=== PATIENT | female | born 1940 | race Caucasian/White ===

== ENCOUNTER 2024-02-09 23:41 | Emergency (ER) | payer MEDICARE, SELFPAY ==
[2024-02-09 23:41] VITALS: BP 141/80; PULSE 83; RESP 20; TEMP 37.9; O2SAT 95; BMI 30.5
--- NOTE | 2024-02-09 23:48 | XR_ITS ---
PROCEDURE INFORMATION: Exam: XR Chest Exam date and time: 02/09/2024 11:53 PM Age: 83 years old Clinical indication: Fever; Additional info: Fever in copd patient TECHNIQUE: Imaging protocol: Radiologic exam of the chest. Views: 1 view. Total images: 1 COMPARISON: No relevant prior studies available. FINDINGS: Lungs: Coarsened pulmonary interstitium at both lung bases. No airspace consolidation or vascular congestion. No interstitial edema. No focal airspace consolidation. Poor lung expansion. Pleural spaces: Unremarkable. No pleural effusion. No pneumothorax. Heart/Mediastinum: Unremarkable. No cardiomegaly. No mediastinal widening or hilar enlargement. Vasculature: Severely atherosclerotic thoracic aorta. Bones/joints: Osteopenia. Mild thoracolumbar scoliosis. Moderate degenerative changes thoracolumbar spine and bilateral AC joints. IMPRESSION: 1. Mild bibasilar pulmonary interstitial coarsening likely reflecting fibrosis. Contact exclude infiltrate. 2. Poor lung expansion with crowded markings 3. No airspace consolidation or vascular congestion.
--- NOTE | 2024-02-09 23:49 | ECG_ITS ---
APPROVED REPORT Exam: Resting ECG HR:84 bpm ECG Measurements Heart Rate 84 AXES AZ 181 P 16 QRSd 83 QRS -27 QT 372 T -30 QTc 414 Conclusion SINUS RHYTHM WITH SINUS ARRHYTHMIA LOW QRS VOLTAGE IN PRECORDIAL LEADS [QRS DEFLECTION < 1.0 mV IN CHEST LEADS] POSSIBLE ANTERIOR MYOCARDIAL INFARCTION , OF INDETERMINATE AGE [30 ms Q WAVE IN V3/V4, OR R < 0.2 mV IN V4] Difficult to interpret ECG secondary to baseline artifact however there does not appear to be any STEMI, there is poor R wave progression in precordial/lateral leads Electronically signed by : PATRICIA HUSSEIN, 02/10/2024 03:19:06
[2024-02-09 23:59] LABS: Coronavirus 19, PCR Not Detected (NotDetected); Influenza A, PCR Not Detected (NotDetected); Influenza B, PCR Not Detected (NotDetected)
[2024-02-10 00:13] LABS: Basophils % 0.6 % (0.1-2.0); Eosinophils % 0.1 % (0.1-12.0); Hematocrit 29.3 % (37.0-47.0); Hemoglobin 9.3 g/dL (12.2-16.2); Lymphocytes # 0.6 K/mm3 (0.7-4.5); Lymphocytes % 9.3 % (10-50); Mean Corpuscular HGB Conc 31.8 g/dL (31.8-35.4); Mean Corpuscular Hemoglobin 30.3 pg (27.0-31.2); Mean Corpuscular Volume 95.2 fl (81-99); Mean Platelet Volume 8.4 fl (7.4-10.4); Monocytes # 0.4 K/mm3 (0.1-1.0); Monocytes % 6.4 % (1.7-9.3); Neutrophils # 5.6 K/mm3 (1.8-7.8); Neutrophils % 83.6 % (37.0-80.0); Platelet Count 315 K/mm3 (142-424); Red Blood Count 3.07 M/mm3 (4.20-5.40); Red Cell Distribution Width 14.2 % (11.5-17.5); White Blood Count 6.7 K/mm3 (4.8-10.8)
[2024-02-10 00:15] LABS: Microscopic, Urine URINE MICROSCOPIC (MICROSCOPIC)
--- NOTE | 2024-02-10 00:17 | ED_ITS ---
Discharge Plan Disposition Patient Disposition: Xfer SNF Condition: Good Prescriptions Prescriptions: New cefdinir 300 mg capsule 300 mg PO BID 5 Days Qty: 10 0RF Referrals Follow up/Referrals: Juaquin Cordova [Primary Care Provider] - See instructions (Please recheck sodium, slightly low in ER today) Activity Restrictions/Add. Instructions Additional Instructions/Restrictions: You were evaluated in the ER and are appropriate for discharge at this time. You have urinary tract infection. Take the prescribed antibiotics as directed, do not skip doses, do not stop taking them early. Drink plenty of water. Take Tylenol if needed for fever. Make an appointment with primary care doctor for reevaluation in 2 to 3 days. They should reevaluate your symptoms as well as recheck your sodium. Return to the ER with new, worsening, or otherwise concerning symptoms. Clinical Impressions Clinical Impression: Urinary tract infection Print Language Print Language: Maltese Discharge ED Provider: Aster Jones General Adult HPI General Chief complaint: Weakness Stated complaint: weakness Time Seen by Provider: 02/09/24 23:46 Mode of Arrival: EMS Source of Information: Patient, EMS and Medical Record Limitations: No Limitations Description of Symptoms (Recalled from ER Triage Doc. by RN): pt was sent out for altered mental statis and weekness, pt is alox4 upon triage, pt complains of a headache no major concerns and wears 2L all the time, ems placed her on 3l nasal cannula History of Present Illness HPI narrative: 83-year-old female presents to the ER from [facility]. Family reported concerns about mental status however patient states she feels fine and is mentating normally but does feel diffusely weak. Patient is alert and fully oriented stating she has a headache and has had painful urination for the last 1 to 2 days. [facility] reported to EMS that patient had temperature of 102 with them. EMS reports patient wears 2 L nasal cannula for history of COPD. Patient confirms this. She denies any chest pain or difficulty breathing, no nausea or vomiting, no dizziness or weakness. Patient denies any cough or congestion as well. She states she overall feels okay besides feeling diffusely weak and having some mild headache and painful urination. Patient did recently have a fall with a broken ankle requiring surgery. She still has dressing on the left lower extremity from this, no complaints of pain in the left lower extremity. Family presented to bedside and discussed their concerns with patient being mild diffusely weak compared to her baseline, they also believe that she likely had urinary tract infection. Related Data Previous Rx's ?Medication ?Instructions ?Recorded cefdinir 300 mg capsule 300 mg PO BID 5 days #10 caps 02/10/24 Allergies Allergy/AdvReac Type Severity Reaction Status Date / Time doxycycline Allergy Mild Rash Verified 02/09/24 23:52 levofloxacin Allergy Rash Verified 02/09/24 23:52 [facility] Disclaimer: The information contained in this section may have been updated after the patient was seen, as this information can be updated by other users. Social History Smoking Status: Former smoker alcohol intake: never current occupational status: retired Travel in the last 8 weeks: None ROS Obtained: Yes All systems reviewed & no additional complaints except as documented Positive ROS per HPI Physical Exam General General appearance: alert and in no apparent distress Head Head exam: atraumatic and normocephalic Eye Eye exam: Present PERRL and EOMI ENT ENT exam: Present mucous membranes moist Neck Neck exam: Present normal inspection and full ROM Chest Chest inspection: Present symmetric chest wall rise Respiratory Respiratory exam: Present normal lung sounds bilaterally; Absent respiratory distress, wheezes or stridor Cardiovascular Cardiovascular exam: Present regular rate and normal rhythm Abdominal Exam Abdominal exam: Present soft; Absent distention, tenderness, guarding or rebound Extremities Exam Extremities exam: Present full ROM and other (Patient has bruising from recent surgery and well-healing surgical incision on the lateral aspect of left lower extremity by the ankle. Neurovascularly intact distally. 2+ DP pulse); Absent edema Back Exam Back exam: Absent CVA tenderness (R) or CVA tenderness (L) Neurological Exam Neurological exam: Present alert and oriented X3; Absent motor sensory deficit Psychiatric Psychiatric exam: Present normal affect and normal mood Skin Skin exam: Present warm and dry Medical Decision Making Medical Records Screening: Per USPSTF and CDC recommendations, given the prevalence of disease in our region, it is our hospital?s policy to screen for HIV and viral Hepatitis for all patients aged 18 and over and those with ongoing risk factors. José Inquiry Pt receiving controlled substance: No Vital Signs: 02/09/24 23:41 Temperature 100.2 F H Temperature Source Oral Pulse Rate [Right Radial] 83 Respiratory Rate 20 Blood Pressure [Right Arm] 141/80 H Blood Pressure Mean [Right Arm] 100 02 Sat by Pulse Oximetry 95 Oxygen Delivery Method Nasal Cannula Oxygen Flow Rate (LPM) 3 Lab Data Lab Results 02/09/24 23:42: Urine Color Yellow, Urine Appearance Slightly cloudy, Urine pH 6.0, Ur Specific Dexter >= 1.030, Urine Protein 2+ A, Urine Glucose (UA) Negative, Urine Ketones Trace, Urine Blood 1+ A, Urine Nitrate Positive, Urine Bilirubin Negative, Urine Urobilinogen 0.2, Ur Leukocyte Esterase 1+ A, Urine RBC 3-5, Urine WBC 5-10, Ur Squamous Epith Cells Occasional, Urine Bacteria 2+ 02/09/24 23:46: VBG pH 7.46 H, VBG pCO2 34.6 L, VBG pO2 125.8 H, VBG HCO3 23.8, VBG Total CO2 24.9, VBG O2 Saturation 98.6 H, VBG Base Excess -0.1, VBG Lactic Acid 1.3 02/09/24 23:54: SARS-CoV-2 (PCR) Not detected, Influenza A Untype (PCR) Not detected, Influenza Type B (PCR) Not detected 02/09/24 23:59: WBC 6.7, RBC 3.07 L, Hgb 9.3 L, Hct 29.3 L, MCV 95.2, MCH 30.3, MCHC 31.8, RDW 14.2, Plt Count 315, MPV 8.4, Neut % (Auto) 83.6 H, Lymph % (Auto) 9.3 L, Ross % (Auto) 6.4, Eos % (Auto) 0.1, Baso % (Auto) 0.6, Neut # (Auto) 5.6, Lymph # (Auto) 0.6 L, Ross # (Auto) 0.4, Eos # (Auto) 0.0, Baso # (Auto) 0.0, Sodium 127 L, Potassium 4.0, Chloride 101, Carbon Dioxide 25, Anion Gap 5.0, BUN 16, Creatinine 0.80, Estimated Creat Clear 52, Estimated GFR 69, Est GFR ( Amer) 83, Glucose 121 H, Calcium 8.1 L, Total Bilirubin 0.6, AST 24, ALT 16, Alkaline Phosphatase 54, Total Protein 6.3, Albumin 3.4 L, Globulin 2.9, Albumin/Globulin Ratio 1.2 02/09/24 23:59 02/09/24 23:59 Orders (Tests/Meds): ED MEDICATIONS Generic Name Dose Route Start Last Admin Trade Name Freq PRN Reason Stop Dose Admin Ceftriaxone Sodium 1 gm/ 50 mls @ 100 mls/hr 02/10/24 00:30 02/10/24 00:44 Sodium Chloride IV 02/20/24 00:29 100 mls/hr Q24H MONI Administration Discontinued Medications Generic Name Dose Route Start Last Admin Trade Name Freq PRN Reason Stop Dose Admin Acetaminophen 1,000 mg 02/09/24 23:48 02/10/24 00:21 Acetaminophen 500mg Tab PO 02/09/24 23:49 1,000 mg ONCE ONE Administration ORDERS Category Date Time Status XR chest portable Stat Exams 02/09/24 23:48 Taken CBC w/Auto Diff [Complete Blood Count Auto Diff] Stat Lab 02/09/24 23:59 Completed CMP [Comprehensive Metabolic Panel] Stat Lab 02/09/24 23:59 Completed Rapid PCR Covid and Flu A/B Stat Lab 02/09/24 23:54 Completed Urinalysis and Microscopic Stat Lab 02/09/24 23:42 Completed Urine Culture Stat Micro 02/09/24 23:42 Received VBG [Venous Blood Gas] Stat RT 02/09/24 23:46 Completed Medical Decision Narrative: In summary, this 83-year-old female presents to the emergency department today with diffuse weakness, mild headache, fever, complaints of dysuria. On initial evaluation patient is hemodynamically stable, borderline febrile at 100.2 on arrival, alert, oriented, GCS 15, no neurologic deficits, postsurgical changes of distal left lower extremity, remainder of exam benign. Differential diagnosis includes but is not limited to electrolyte abnormality, dehydration, urinary tract infection, viral syndrome, patient has comorbidities of COPD increasing suspicion for possible pneumonia as well. I considered the possibility of possible intracranial abnormality with patient having headache however she has no neurologic deficits, no vision changes, no red flag symptoms such as thunderclap headache, sudden onset, or maximum intensity at onset, no vomiting, and no neurologic complaints aside from headache so I do not believe a CT of the brain is indicated at this time. Based on these concerns, I ordered serum labs, chest x-ray, urine studies. ECG personally interpreted demonstrates significant baseline artifact on initial ECG complicating interpretation however it appears to be a sinus rhythm, rate 84, borderline left axis deviation, poor R wave progression, no STEMI. Repeat ECG was performed for better quality study and for better interpretation, on my personal interpretation the ECG demonstrates sinus rhythm, rate 82, normal LA and QTc, no STEMI. I have extremely low concern for any cardiac abnormality since patient is not complaining of any chest pain, shortness of breath, lightheadedness, or peripheral swelling. High suspicion still for urinary tract infection Patient received acetaminophen in the ER initially. Labs personally reviewed demonstrate no leukocytosis, anemia with hemoglobin 9.3, nonactionable, VBG with pH 7.46, no hypercarbia, mild hyperoxia, normal lactic, mild hyponatremia with sodium 127, patient is asymptomatic from this and this simply requires outpatient follow-up at this time, no findings of kidney dysfunction, UA with 5-10 WBCs, 2+ bacteria, nitrate positive. Given patient's symptoms, I will treat for urinary tract infection with these findings. COVID, flu negative With positive findings of urinary tract infection, patient received IV Rocephin. She tolerated this well. I discussed prescriptions with Rafi Grider, they recommend since we are going into the weekend to have family parts picker prescriptions at an outpatient pharmacy if possible since their mail order pharmacy will likely not get them the antibiotics until Tuesday. I discussed this with family who is now at bedside. Daughter states that she is able to parts picker patient's prescriptions at her usual pharmacy, [facility] in [place]. She knows it is very important to get these antibiotics to the patient within 1 day for continued management. I prescribed cefdinir for outpatient management. On further reassessment, patient no longer has headache and feels improved. She is appropriate for discharge. Patient and family at bedside were given instructions on symptomatic management, follow up instructions including to recheck sodium outpatient, and return precautions for the emergency department. They indicated understanding and patient was discharged in stable condition. Critical Care Critical Care Time Critical Care Time: No
[2024-02-10 00:20] LABS: Alanine Aminotransferase 16 U/L (12-78); Albumin Level 3.4 g/dl (3.5-5.0); Albumin/Globulin Ratio 1.2 (1.1-1.8); Alkaline Phosphatase 54 U/L (38-126); Aspartate Amino Transferase 24 U/L (14-36); Bilirubin,Total 0.6 mg/dl (0.2-1.3); Blood Urea Nitrogen 16 mg/dl (7-17); Calcium 8.1 mg/dl (8.4-10.2); Carbon Dioxide 25 mmol/L (22.0-30.0); Chloride 101 mmol/L (98-107); Creatinine Clearance Estimated 52 mL/min (50-200); Estimated Glomerular Filt Rate 69 ml/min (>60); GFR (African American) 83 ML/MIN (>60); Globulin 2.9 g/dL (1.3-3.2); Glucose 121 mg/dl (74-100); Sodium 127 mmol/L (136-145); Total Protein,Serum 6.3 g/dl (6.3-8.2)
[2024-02-10 00:20] LABS: Bilirubin,Urine Negative (Negative); Blood, Urine 1+ (Negative); Color,Urine YELLOW (Yellow); Glucose,Urine (UA) Negative (Negative); Ketones,Urine TRACE (Negative); Leukocyte Esterase,Urine 1+ (Negative); Nitrate,Urine POSITIVE (Negative); Protein,Urine 2+ (Negative); Specific Gravity, Urine >= 1.030 (1.005-1.030); Urobilinogen,Urine 0.2 EU/dl (0.2)
[2024-02-10 00:21] LABS: Appearance,Urine Slightly Cloudy (Clear)
[2024-02-10] MEDS: ACETAMINOPHEN 500MG TAB 1000 MG PO (00:21)
[2024-02-10 00:28] LABS: Lactate Venous 1.3 mmol/L (0.4-2.0); VBG Base Excess -0.1 mmol/L (-2.4-2.3); VBG HCO3 23.8 mmol/L (23-30); VBG Oxygen Saturation 98.6 % (50-70); VBG PCO2 34.6 mmol/L (35-51); VBG PH 7.46 mmol/L (7.31-7.41); VBG PO2 125.8 mmol/L (28-40); VBG Total CO2 24.9 mmol/L (23-27)
--- NOTE | 2024-02-10 00:29 | ECG_ITS ---
APPROVED REPORT Exam: Resting ECG HR:82 bpm ECG Measurements Heart Rate 82 AXES TN 162 P 69 QRSd 94 QRS -26 QT 399 T -31 QTc 437 Conclusion SINUS RHYTHM WITH FREQUENT SUPRAVENTRICULAR PREMATURE COMPLEXES BORDERLINE LEFT AXIS DEVIATION [QRS AXIS < -20] Artifact is improved compared to initial ECG, no STEMI Electronically signed by : PATRICIA HUSSEIN, 02/10/2024 03:20:22
[2024-02-10 00:35] LABS: Bacteria,Urine 2+ /lpf; Squamous Epithelial Cell,Urine Occasional #/hpf (0-5)
[2024-02-10] MEDS: CEFTRIAXONE 1 GM 1 GM in 0.9 % SODIUM CHLORIDE 50 ML IV (00:44)
--- NOTE | 2024-02-10 01:08 | PC.NURSE ---
called report to krystian lo rn, contacted ems for transport back to facility
[2024-02-10 01:10] VITALS: BP 140/67; PULSE 80; RESP 18; TEMP 36.9; O2SAT 96
--- NOTE | 2024-02-10 16:29 | PC.NURSE ---
urine culture discussed with , pt dc with cefdinir, ntd
== END 2024-02-10 01:50 ==
PROVIDERS: Emergency Provider Emergency Medicine; PCP Internal Medicine
DX: R41.82 Altered mental status, unspecified (principal); R53.1 Weakness; R51.9 Headache, unspecified; R30.9 Painful micturition, unspecified; N39.0 Urinary tract infection, site not specified
CPT/HCPCS: 71045; 80053; 81001; 82803; 85025; 87086; 87088; 87186; 87636; 93005; 96374; 99284; J0696